=== PATIENT | male | born 1955 | race Caucasian/White ===

== ENCOUNTER 2017-01-21 23:15 | Emergency (ER) | payer SELFPAY ==
[~2017-01-21] VITALS: Ht 170.2 cm; Wt 55.0 kg
[2017-01-22 00:19] LABS: BLOOD UREA NITROGEN 3 mg/dL (7-18)
[2017-01-22 02:09] VITALS: BP 110/74
== END 2017-01-22 09:07 | disposition home or self-care (01) ==
LOC: ED 23:16
DX: F10.120 Alcohol abuse with intoxication, uncomplicated (principal)
CPT/HCPCS: 36415; 71020; 80048; 80307; 82040; 85025; 93005

== ENCOUNTER → 2017-06-11 | Outpatient (CLI) | payer OTHER | END | disposition home or self-care (01) | LOC: CARD 10:12 | PROVIDERS: ATTEND Nurse Practitioner Acute Care | DX: M21.331 Wrist drop, right wrist (principal) | CPT/HCPCS: 95886; 95909 ==